=== PATIENT | female | born 1960 | race Hispanic/Latino ===

== ENCOUNTER → 2019-09-22 | Outpatient (CLI) | payer OTHER | END | disposition home or self-care (01) | LOC: RAH 09:24 | PROVIDERS: ATTEND Family Medicine | DX: Z12.31 Encounter for screening mammogram for malignant neoplasm of breast (principal) | CPT/HCPCS: 77067 ==

== ENCOUNTER → 2025-02-09 | Outpatient (CLI) | payer MEDICARE, OTHER ==
--- NOTE | 2025-02-09 14:20 | HMCIMG ---
MRI LUMBAR SPINE WITHOUT CONTRAST INDICATION: Back pain COMPARISON: None PARAMETERS: Long and short axis fat and water weighted sequences were obtained through the lumbar spine. FINDINGS: Normal lordosis of the lumbar spine is maintained. The lumbar vertebral bodies are normal in height, without evidence for acute compression fracture or osseous marrow replacing process. Multilevel mild anterior endplate osteophytic spurring. The conus medullaris is normal in signal and terminates at the appropriate level. T12-L1: No significant disc displacement, neuroforaminal narrowing, or central canal stenosis. No significant facet disease identified. L1-L2: No significant disc displacement, neuroforaminal narrowing, or central canal stenosis. No significant facet disease identified. L2-L3: No significant disc displacement, neuroforaminal narrowing, or central canal stenosis. Mild bilateral facet disease. L3-L4: No significant disc displacement, neuroforaminal narrowing, or central canal stenosis . Moderate bilateral facet disease. L4-L5: Extremely shallow right and left foraminal disc displacement without any significant neuroforaminal narrowing or central canal stenosis. Mild bilateral facet disease. L5-S1: Focal posterior right paracentral/foraminal disc protrusion without any significant neuroforaminal narrowing or central canal stenosis. Mild disc height loss. Mild bilateral facet disease. No evidence for intraannular tear or discitis. The pre- and paraspinous soft tissues appear unremarkable. ANCILLARY FINDINGS: Incompletely imaged 3.2 cm long by roughly 1.0 cm wide Tarlov cyst on the left at the S1-S2 level and smaller 1.5 cm on the right. IMPRESSION: 1. Focal posterior right paracentral/foraminal disc protrusion at the L5-S1 level, without any significant neuroforaminal narrowing or central canal stenosis. 2. 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 3. Level by level analysis, additional minor degenerative changes, and pertinent negatives as reported.
== END | disposition home or self-care (01) ==
LOC: RAH 13:20
PROVIDERS: ATTEND Family Medicine
DX: M51.16 Intervertebral disc disorders with radiculopathy, lumbar region (principal); G96.191 Perineural cyst
CPT/HCPCS: 72148